=== PATIENT | male | born 1985 | race Caucasian/White ===

== ENCOUNTER 2024-12-13 12:43 | Emergency (ER) | payer OTHER ==
[~2024-12-13] VITALS: Ht 180.3 cm; Wt 90.9 kg
[2024-12-13 12:55] VITALS: TEMP 98
[2024-12-13] MEDS ORDERED: BUPR1FIL7 SL (14:58)
[2024-12-13] MEDS: BUPRENORPHINE HCL/NALOXONE HCL 8-2 MG SUBLINGUAL TABLET SL ONE (15:07)
[2024-12-13 15:45] VITALS: BP 135/84; PULSE 80; RESP 16; O2SAT 98
[2024-12-13] MEDS ORDERED: BUPR1TAB46 SL (17:19)
== END 2024-12-13 16:06 | disposition home or self-care (01) ==
LOC: EMS 12:46
DX: F11.10 Opioid abuse, uncomplicated (principal); Z76.0 Encounter for issue of repeat prescription; Z88.0 Allergy status to penicillin
CPT/HCPCS: 99283